=== PATIENT | female | born 1980 | race Caucasian/White ===

== ENCOUNTER 2018-11-10 13:45 | Outpatient (CLI) | payer MEDICAID ==
[~2018-11-10] VITALS: Ht 160 cm; Wt 71.9 kg
[2018-11-10 14:37] VITALS: BP 97/65; PULSE 99; RESP 18; Ht 160 cm; Wt 71.9 kg
--- NOTE | 2018-11-10 18:05 | PN ---
Triage Information Date/Time 11/10/1809/25/1755 Reason for visit: questionable EDC postdate? Weeks of Gestation 37w3 d by jun u/s /Para Diabetes: none Hypertention: none Objective Vital Signs Date Temp Pulse Resp B/P (MAP) Pulse Ox O2 O2 Flow FiO2 Time Delivery Rate 11/10/18 98.0 99 18 97/65 (76) 14:37 Heart Rate: 140's Heart Rate Comments CAT I Contractions: None Results/Medications Imaging Results BPP 8/8 BEV 9.4 EFW 3285gm Disposition: Discharge Assessment/Plan A IUP 37w3d P discharge home with routine labor instructions RTH prSTACEY Underwood MD Nov 10, 2018 18:05
== END 2018-11-10 16:50 | disposition home or self-care (01) ==
LOC: OBT 13:45 → L-D 13:46 → OBT 16:50
PROVIDERS: ATTEND Obstetrics & Gynecology
DX: O47.1 False labor at or after 37 completed weeks of gestation (principal); Z3A.37 37 weeks gestation of pregnancy
CPT/HCPCS: 76815; 76818; Z7500; G0463

== ENCOUNTER 2018-11-29 07:30 | Inpatient (IN) | payer MEDICAID ==
[~2018-11-29] VITALS: Ht 154.9 cm; Wt 71.5 kg
[2018-11-29] MEDS ORDERED: PREN-93 PO (07:58)
[2018-11-29 07:59] VITALS: BP 106/73; PULSE 94
[2018-11-29] MEDS ORDERED: FOLI-49 PO (07:59)
[2018-11-29] MEDS ORDERED: FER325 PO (07:59)
[2018-11-29] MEDS ORDERED: CALC600T24 PO (07:59)
--- NOTE | 2018-11-29 08:40 | TRIAGE ---
OB Triage Datetime Report Generated by CPN: 11/29/2018 08:40 Datetime: 11/29/2018 08:02 Vaginal Exam Dilatation (cms): 1.5 Effacement (%): 70 Station: -2 Exam By: tapan Vaginal Bleeding: None Cervix, Consistency: Soft Cervix, Position: Midposition Datetime: 11/29/2018 07:53 Assessment Type: Triage Maternal Assessment Level of Consciousness: Keenly Alert, Responsive DTR's/Clonus: DTRs 2+; No Clonus Headache: Denies Blurred Vision: No Respiratory Effort: Unlabored; Regular Rhythm; Equal Expansion Breath Sounds, Left: Clear and Equal Breath Sounds, Right: Clear and Equal Nausea/Vomiting: Denies RUQ Epigastric Pain: Denies Lower Extremities Edema: None Degree: None Upper Extremities Edema: None Degree: None Facial Edema: None Fall Risk Assessment History of Falling: (0) No Secondary Diagnosis: (0) No Ambulatory Aid: (0) Bedrest/Nurse Assist IV Therapy: (0) No Gait: (0) Normal/Bedrest/Immobile Mental Status: (0) Oriented to Own Ability Fall Score: 0 Fall Risk Score Definition: No Risk: No action required Datetime: 11/29/2018 07:45 Time of Arrival: 11/29/2018 07:31 EGA: 40.2 Arrived By: Ambulatory Arrived From: Home Chief Complaint: pt. here C/O UC'S Movement: Present Contractions: Irregular Rupture of Membranes: Denies Vaginal Bleeding: None Vaginal Discharge: Denies Recent Sexual Intercouse: Denies Abdominal Trauma: Not Applicable Patient Complaints: Contractions; Cramping Time Provider Notified: 11/29/2018 08:34 Provider Notified: ESHAGHIAN Initial Plan: EFM/SVE Datetime: 11/29/2018 07:43 Labor Evaluation Monitor Mode: External Monitor Mode: External US Datetime: 11/10/2018 16:02 Pattern: Normal: <= 5 Contractions in 10 Minutes Resting Tone [place]: Relaxed Contraction Comments: no uc Heart Rate FHR Baseline Rate: 135 Monitor Mode: External US Variability: Moderate 6-25 bpm Accelerations: 15X15 Decelerations: None Category: Category I Comments: reactive nst Pain Assessment Pain Presence: None/Denies Pain Type: N/A Datetime: 11/10/2018 14:56 Pattern: Normal: <= 5 Contractions in 10 Minutes Resting Tone [place]: Relaxed Contraction Comments: no uc Heart Rate FHR Baseline Rate: 135 Variability: Moderate 6-25 bpm Accelerations: 15X15 Decelerations: None Category: Category I Pain Assessment Pain Presence: None/Denies Pain Type: N/A Datetime: 11/10/2018 14:41 Assessment Type: Triage Maternal Assessment Level of Consciousness: Keenly Alert, Responsive DTR's/Clonus: DTRs 2+; No Clonus Headache: Denies Blurred Vision: No Respiratory Effort: Unlabored; Regular Rhythm; Equal Expansion Breath Sounds, Left: Clear and Equal Breath Sounds, Right: Clear and Equal Nausea/Vomiting: Denies RUQ Epigastric Pain: Denies Lower Extremities Edema: None Degree: None Upper Extremities Edema: None Facial Edema: None Fall Risk Assessment History of Falling: (0) No Secondary Diagnosis: (0) No Ambulatory Aid: (0) Bedrest/Nurse Assist IV Therapy: (0) No Gait: (0) Normal/Bedrest/Immobile Mental Status: (0) Oriented to Own Ability Fall Score: 0 Fall Risk Score Definition: No Risk: No action required Datetime: 11/10/2018 14:40 Time of Arrival: 11/10/2018 13:50 EGA: 37.4 Arrived By: Ambulatory Arrived From: Home Chief Complaint: pt. to ob triage from md office for nst, bpp, efw for ? EDC Movement: Present Contractions: Denies/Absent Rupture of Membranes: Denies Vaginal Bleeding: None Vaginal Discharge: Denies Recent Sexual Intercouse: Denies Abdominal Trauma: Not Applicable Patient Complaints: None Time Provider Notified: 11/10/2018 15:49 Provider Notified: Initial Plan: NST, BPP, EFW
--- NOTE | 2018-11-29 08:57 | PREOPHP ---
DATE OF ADMISSION: 11/29/2018 HISTORY OF PRESENT ILLNESS: Ms. Barbie Stout is a 38-year-old 1, para 0, EDC 11/27/2018 i ntrauterine at 40 weeks and 2 days gestational age, presented to triage complaining of cont ractions since 1:30 this morning. She denies any vaginal bleeding or discharge. Her care t ook place with Dr. Kumar. PAST MEDICAL HISTORY: The patient is deaf. MEDICATIONS: vitamins and iron supplement. PAST SURGICAL HISTORY: None. OBSTETRIC HISTORY: Prima . GYNECOLOGIC HISTORY: Twelve, regular 3 to 4 days. Denies any sexually transmitted infections. Sexu ally active with 1 partner. SOCIAL HISTORY: Denies any smoking, drugs or alcohol. FAMILY HISTORY: None. REVIEW OF SYSTEMS: All within normal except history of present illness. PHYSICAL EXAMINATION: HEENT: Within normal. LUNGS: CTA bilateral. CARDIOVASCULAR: S1, S2, regular rhythm. ABDOMEN: Gravid, nontender. Negative CVA bilateral. EXTREMITIES: Negative edema. No calf tenderness. PELVIC: Vaginal exam 1 to 2, 70, -2. heart tracing category 1. Tocometer regular contraction s. ASSESSMENT: Intrauterine at term in labor. PLAN: Anticipate vaginal delivery. Consider Pitocin as needed. Dictated By: JOE DEE/GUY Conf#: [id number] DID#: [id number]
[2018-11-29] MEDS ORDERED: CARBOPROST 250 MCG INJ IM PRN (09:00)
[2018-11-29] MEDS ORDERED: IBUPROFEN 600 MG TAB PO PRN (09:00)
[2018-11-29] MEDS ORDERED: MISOPROSTOL 200 MCG TAB PR PRN (09:00)
[2018-11-29] MEDS ORDERED: METHYLERGONOVINE 0.2 MG INJ IM PRN (09:00)
[2018-11-29] MEDS ORDERED: LIDOCAINE 1% (MPF) 30 ML INJ INJ PRN (09:00)
[2018-11-29] MEDS ORDERED: OXYTOCIN 30 UNITS/LR 500 ML IV SCH ×3 (09:00→20:30)
[2018-11-29] MEDS ORDERED: BUTORPHANOL 2 MG INJ IV PRN (09:00)
[2018-11-29] MEDS ORDERED: OXYTOCIN 30 UNITS/LR 500 ML IV PRN (09:00)
[2018-11-29 10:59] VITALS: Ht 154.9 cm; Wt 71.5 kg
[2018-11-29] MEDS: LACTATED RINGER'S 1,000 ML IV SCH ×2 (11:02→15:16)
[2018-11-29] MEDS ORDERED: MISOPROSTOL 50 MCG CAPSULE PO PRN (20:30)
[2018-11-30] MEDS: LACTATED RINGER'S 1,000 ML IV SCH ×4 (00:50→10:34)
--- NOTE | 2018-11-30 07:08 | PREAC ---
Date/Time of Note Date/Time of Note DATE: 11/30/18 TIME: 07:08 Anesthesia Eval and Record Evaluation Time Pre-Procedure Interview DATE: 11/30/18 TIME: 07:08 Age 38 Sex female NPO: 8 hrs Preoperative diagnosis Planned procedure labor epidural Past Medical History Past Medical History: Includes Neuro: Other (pt is deaf) Surgery & Anesthesia Issues No known issue Meds Anticoagulation: No Beta Fabian within 24 hr: No Reason Beta Fabian not given: Pt. not on B-Fabian Reported Medications Folic Acid* (Folic Acid*) 1 Mg Tablet, 1 MG PO DAILY, TAB 11/29/18 Calcium Carbonate* (Calcium Carbonate*) 600 MG Ca Tab, 600 MG PO DAILY, TAB 11/29/18 Ferrous Sulfate* (Ferrous Sulfate*) 325 Mg Tabec, MG PO DAILY, TAB 11/29/18 Vit No.124/Iron/FA ( Vitamin Tablet) 1 Each Tablet, 1 EACH PO DAILY, TAB 11/29/18 Current Medications Lactated Ringer's 1,000 ml @ 125 mls/hr Q8H IV Last administered on 11/30/18at 06:22; Admin Dose 125 MLS/HR; Start 11/29/18 at 08:35 Butorphanol Tartrate (Stadol) 2 mg Q2H PRN IV .PAIN SCALE 6-10 Last administered on 11/30/18at 00:50; Admin Dose 2 MG; Start 11/29/18 at 09:00 Lidocaine (Xylocaine 1% (Mpf)) 30 ml ONCE PRN INJ .EPISIOTOMY; Start 11/29/18 at 09:00 Oxytocin/Lactated Ringer's 500 ml @ 125 mls/hr POST IV ; Start 11/29/18 at 09:00 Ibuprofen (Motrin) 600 mg ONCE PRN PO .PAIN 1-5; Start 11/29/18 at 09:00 Oxytocin/Lactated Ringer's 500 ml @ 0 mls/hr ONCE PRN IV .VAGINAL BLEEDING; Start 11/29/18 at 09:00 Methylergonovine Maleate (Methergine) 0.2 mg ONCE PRN IM .VAGINAL BLEEDING; Start 11/29/18 at 09:00 Carboprost Tromethamine (Hemabate) 250 mcg ONCE PRN IM .VAGINAL BLEEDING; Start 11/29/18 at 09:00 Misoprostol (Cytotec) 1,000 mcg ONCE PRN MD .VAGINAL BLEEDING; Start 11/29/18 at 09:00 Misoprostol (Cytotec 50 Mcg Capsule) 50 mcg Q4 PRN PO INDUCTION Last administered on 11/29/18at 20:28; Admin Dose 50 MCG; Start 11/29/18 at 20:30 Oxytocin/Lactated Ringer's 500 ml @ 0 mls/hr FOR INDUCTION IV Last administered on 11/30/18at 03:40; Admin Dose 1 MLS/HR; Start 11/29/18 at 20:30 Meds reviewed: Yes Allergies Coded Allergies: No Known Allergy (Unverified , 11/10/18) Allergies Reviewed: Yes Labs/Studies Labs Reviewed: Reviewed by anesthesiologist Result Diagram: 11/29/18 1050 11/29/18 1050 Laboratory Tests 11/29/18 10:50 Blood Bank Test 11/29/18 10:50 Antibody Screen NEGATIVE Blood Type A POSITIVE Rh Immune Globulin Candidate NO test: Positive Pre-procedure Exam Last vitals Vital Signs Date Temp Pulse Resp B/P (MAP) Pulse Ox O2 O2 Flow FiO2 Time Delivery Rate 11/29/18 97.4 94 106/73 07:59 (84) Airway: Adequate mouth opening, Adequate thyromental dist Mallampati: Mallampati II Teeth: Normal Lung: Normal Heart: Normal ASA Physical Status ASA physical status: 2 Emergency: None Planned Anesthetic Neuraxial: Epidural Pre-operative Attestations Prior to commencing anesthesia and surgery, the patient was re-evaluated, there was verification of: *The patient's identity *The results of appropriate recent lab work and preoperative vital signs *The above evaluation not changing prior to induction *Anesthetic plan, risk benefits, alternative and complications discussed with patient/family; questions answered; patient/family understands, accepts and wishes to proceed. MARLI GAGE Nov 30, 2018 07:08
[2018-11-30] MEDS ORDERED: DIPHENHYDRAMINE 50 MG INJ IV PRN (07:30)
[2018-11-30] MEDS ORDERED: ONDANSETRON 4 MG INJ IV PRN ×2 (07:30→14:00)
[2018-11-30] MEDS ORDERED: NALOXONE (0.4 MG/ML) INJ IV PRN (07:30)
[2018-11-30] MEDS ORDERED: KETOROLAC 30 MG INJ IV PRN (07:30)
[2018-11-30] MEDS ORDERED: HYDROmorphONE 0.5 MG/0.5 ML SYG IV PRN ×2 (07:30)
[2018-11-30] MEDS ORDERED: FENTAnyl 2MCG/ML-ROPIV 0.2% 100 ML BAG EPI SCH (07:30)
--- NOTE | 2018-11-30 08:14 | PAC ---
Date/Time of Note Date/Time of Note DATE: 11/30/18 TIME: 08:14 Post-Anesthesia Notes Post-Anesthesia Note Last documented vital signs Vital Signs Date Temp Pulse Resp B/P (MAP) Pulse Ox O2 O2 Flow FiO2 Time Delivery Rate 11/29/18 97.4 94 106/73 07:59 (84) Activity: WNL Respiratory function: WNL Cardiovascular function: WNL Mental status: Baseline Pain reasonably controlled: Yes Hydration appropriate: Yes Nausea/Vomiting absent: Yes MARLI GAGE Nov 30, 2018 08:14
--- NOTE | 2018-11-30 08:15 | QN ---
Documentation Comment progress note in labor and delivery patient seen and evaluated recently recieved an epidural no complaints vs stable afebrile ab gravid, nt extremity no edema no calf tenderness ve 8/90/-2 srom fhr cat 1 toco regular a/ iup at term in labor, currently on Pitocin for augmentation p/ anticipate vaginal delivery JOE PARNELL MD Nov 30, 2018 08:15
[2018-11-30] MEDS ORDERED: MINERAL OIL LIGHT 10 ML VIAL TOP ONE (10:00)
[2018-11-30] MEDS ORDERED: OXYTOCIN 30 UNITS/LR 500 ML IV SCH (13:45)
--- NOTE | 2018-11-30 13:45 | LDN ---
Date/Time of Note Date/Time of Note DATE: 11/30/18 TIME: 13:44 Delivery Summary Weeks of Gestation 39 Placenta Delivered: Spontaneously Meconium: Light Episiotomy: No Laceration repair: 1st degree vaginal laceration repair with 2-0 chromic Anesthesia type: Epidural Estimated blood loss: 250 Sponge & Needle done & correct: Yes All needle counts correct: Yes Any foreign bodies felt in the: No Delivery Information Sex Infant Sex: female Apgars 1 Minute: 9 5 Minute: 9 Suctioning Nose & mouth suctioned at brian: No Delee suction performed: No Umbilical Cord Umbilical cord with: 3 Vessels Cord presentations: no nuchal cord Cord Blood was obtained: Yes JOE PARNELL MD Nov 30, 2018 13:45
[2018-11-30] MEDS ORDERED: MISOPROSTOL 200 MCG TAB PR PRN (14:00)
[2018-11-30] MEDS ORDERED: BENZOCAINE 20% 56 ML SPRAY TOP PRN (14:00)
[2018-11-30] MEDS ORDERED: ACETAMINOPHEN 325 MG TAB PO PRN (14:00)
[2018-11-30] MEDS ORDERED: OXYCODONE/ASPIRIN (4.88/325) TAB PO PRN ×2 (14:00)
[2018-11-30] MEDS ORDERED: NACL 0.9% 3 ML SYG IV SCH (14:00)
[2018-11-30] MEDS ORDERED: METHYLERGONOVINE 0.2 MG INJ IM PRN (14:00)
[2018-11-30] MEDS ORDERED: DIPHENHYDRAMINE 25 MG CAP PO PRN (14:00)
[2018-11-30] MEDS ORDERED: WITCH HAZEL/GLYCERIN PAD PR PRN (14:00)
[2018-11-30] MEDS ORDERED: OXYTOCIN 30 UNITS/LR 500 ML IV PRN (14:00)
[2018-11-30] MEDS ORDERED: CARBOPROST 250 MCG INJ IM PRN (14:00)
[2018-11-30 16:45] VITALS: BP 110/63; PULSE 85; RESP 16
[2018-11-30] MEDS: LANOLIN HPA 1 PKT TOP PRN (17:40)
[2018-11-30] MEDS: IBUPROFEN 600 MG TAB PO SCH (18:00)
[2018-11-30 20:15] VITALS: BP 111/63; PULSE 81; RESP 18
[2018-11-30] MEDS: SENNA/DOCUSATE NA (8.6MG/50MG) TAB PO SCH (21:43)
[2018-12-01] VITALS: BP 108/61; PULSE 83; RESP 17
[2018-12-01] MEDS: IBUPROFEN 600 MG TAB PO SCH ×4 (00:24→18:27)
[2018-12-01 04:00] VITALS: BP 101/61; PULSE 78; RESP 18
[2018-12-01 08:00] VITALS: BP 108/65; PULSE 83; RESP 18
[2018-12-01] MEDS: SENNA/DOCUSATE NA (8.6MG/50MG) TAB PO SCH ×2 (09:39→21:00)
[2018-12-01 12:00] VITALS: BP 102/65; PULSE 68; RESP 19
[2018-12-01 17:08] VITALS: BP 100/60; PULSE 85; RESP 18
[2018-12-01 20:30] VITALS: BP 113/61; PULSE 84; RESP 18
--- NOTE | 2018-12-01 21:12 | PD.PPDC ---
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 Condition [id number] Patient Condition: [id number] Good Diet [id number] Diet: Irres8h Resume Regular Diet Activity/Restrictions [id number] Activity: Jqhoe5d Normal Activity May Shower [id number] Restrictions: Ntrge8e No Exercising No Lifting No Driving No Sexual Activity Nothing in the Vagina No [place] No Tampons, douche Follow-up Follow-up with Physician: 3, Week/Weeks Return to clinic for Slvky2Nj APPROVER Instructions: Mkbwy1f Fever greater than 101 Chills Worsening abdominal pain Excessive Vaginal Bleeding More than 2 pads per hour Unable to tolerate diet Vocml2No OB Instructions: Dabve7x Breast Tenderness Depression Blurried Vision Headache Sacsn2Pb Surgical Instructions: Euvsb9e Incisional Drainage Incisional Redness JOE PARNELL MD Dec 01, 2018 21:12
--- NOTE | 2018-12-01 21:15 | DS ---
Date/Time of Note Date/Time of Note DATE: 12/01/18 TIME: 21:14 Obstetrical Discharge Record Final Diagnosis Final Diagnosis: Term delivered Vaginal Delivery Obstetrical Delivery: Spontaneous, Laceration, Repaired Condition on Discharge Physical Assessment Last Vitals: stable afebrile Voiding: Yes Bowel Movement: Yes Breast: Soft, non-tender, Filling Fundus: Firm Abdomen and Incision: soft nt Calf Tenderness: No Patient Condition: Fair JOE PARNELL MD Dec 01, 2018 21:15
[2018-12-02] MEDS: IBUPROFEN 600 MG TAB PO SCH ×3 (03:58→12:20)
[2018-12-02 04:30] VITALS: BP 114/76; PULSE 82; RESP 19
[2018-12-02 08:00] VITALS: BP 103/67; PULSE 80; RESP 19
[2018-12-02] MEDS: SENNA/DOCUSATE NA (8.6MG/50MG) TAB PO SCH (08:56)
[2018-12-02 15:30] VITALS: BP 101/60; PULSE 86; RESP 18
[2018-12-02] MEDS: LANOLIN HPA 1 PKT TOP PRN (16:00)
--- NOTE | 2018-12-03 19:36 | DELSUM ---
Delivery Summary A-C Datetime Report Generated by CPN: 12/03/2018 19:35 DELIVERY PERSONNEL Operations Associate: Duvo, Giovanna MATERNAL INFORMATION Delivery Anesthesia: Epidural Medications in Delivery: PITOCIN 30 UNITS Delivery QBL (ml): 256 Placenta Cultured: Yes Maternal Complications: Other Other Maternal Complications: PT IS HEARING IMPAIRED. LABOR SUMMARY EDC: 11/27/2018 00:00 No. Babies in Womb: 1 Attempted: No Labor Anesthesia: Epidural LABOR INFORMATION Reason for Induction: Not Applicable Onset of Labor: 11/30/2018 03:37 Complete Dilatation: 11/30/2018 12:30 Cervical Ripening Agents: Cytotec @ Oxytocin: Induction Group B Beta Strep: Negative Antibiotics # of Doses: 0 Steroids Given: None Reason Steroids Not Administered: Not Applicable MEMBRANES Membranes Rupture Method: Artificial Rupture of Membranes: 11/30/2018 07:02 Length of Rupture (hr): 6.38 Amniotic Fluid Color: Light Meconium Amniotic Fluid Amount: Small Amniotic Fluid Odor: None STAGES OF LABOR Stage 1 hr: 8 Stage 1 min: 53 Stage 2 hr: 0 Stage 2 min: 55 Stage 3 hr: 0 Stage 3 min: 3 Total Time in Labor hr: 9 Total Time in Labor min: 51 VAGINAL DELIVERY Episiotomy: None Laceration Extension: First Degree Laceration Type: Vaginal Laceration Repair: Yes Initial Vag Sponge Count: 10 Final Vag Sponge Count: 10 Initial Vag Sharps Count: 1 Final Vag Sharps Count: 3 Sponge Count Correct: Yes; Vaginal Sweep Performed Sharps Count Correct: Yes BABY A INFORMATION Infant Delivery Date/Time: 11/30/2018 13:25 Method of Delivery: Vaginal Born in Route : No : N/A Forceps: N/A Vacuum Extraction: N/A Shoulder Dystocia : No SHOULDER DYSTOCIA BABY A Infant Delivery Date/Time: 11/30/2018 13:25 PRESENTATION/POSITION BABY A Presentation: Cephalic Cephalic Presentation: Vertex Vertex Position: Left Occipital Anterior Breech Presentation: N/A PLACENTA INFORMATION BABY A Placenta Delivery Time : 11/30/2018 13:28 Placenta Method of Delivery: Spontaneous Placenta Status: Delivered SCORES BABY A Heart Rate 1 min: >100 bpm Resp Effort 1 min: Good Cry Reflex Irritability 1 min: Cough/Sneeze/Pulls Away Muscle Tone 1 min: Active Motion Color 1 min: Body [place], Extremit Blue Resuscitation Effort 1 min: Tactile Stimulation SCORE 1 MIN: 9 Heart Rate 5 min: >100 bpm Resp Effort 5 min: Good Cry Reflex Irritability 5 min: Cough/Sneeze/Pulls Away Muscle Tone 5 min: Active Motion Color 5 min: Body [place], Extremit Blue Resuscitation Effort 5 min: Tactile Stimulation SCORE 5 MIN: 9 INFANT INFORMATION BABY A Gestational Age at Delivery: 40.3 Gestational Status: Full Term- 39- 40.6 Weeks Outcome : Liveborn, with signs of life Condition : Stable Sex: Female IDENTIFICATION/MEDS BABY A ID Band Number: [id number] ID Band Location: Right Leg; Left Arm Sensor Applied: Yes Sensor Number: [id number] Sensor Location : Cord Clamp Vitamin K Given : Not Given Erythromycin Given: Not Given WEIGHT/LENGTH BABY A Infant Birthweight (gm): 3025 Weight (lb): 6 Weight (oz): 11 Length (in): 19.00 Infant Length (cm): 48.26 CORD INFORMATION BABY A No. Cord Vessels: 3 Nuchal Cord : N/A Cord Blood Taken: Yes Suction: Mouth; Nose ASSESSMENT BABY A Complications: Meconium; None Physical Findings at Delivery: Caput Succedaneum; Molding of the Head; Within Normal Limits Infant Respirations: Appears Normal Buyers' Agent/ALS Called : Yes Care By: Amish KEVIN Transferred To: Remains with Mother
== END 2018-12-02 18:18 | disposition home or self-care (01) | DRG 807 ==
LOC: OBT 07:30 → L-D 07:43 → OBT 09:41 → L-D 09:44 → PP1 11-30 17:24
PROVIDERS: ADMIT Obstetrics & Gynecology; ATTEND Obstetrics & Gynecology
PROC: 10E0XZZ Delivery of Products of Conception, External Approach (ICD-10-PCS; principal; 2018-11-30)
PROC: 0HQ9XZZ Repair Perineum Skin, External Approach (ICD-10-PCS; 2018-11-30)
DX: O70.0 First degree perineal laceration during delivery (principal); Z37.0 Single live birth; Z3A.40 40 weeks gestation of pregnancy
CPT/HCPCS: 62322; 76815; 80053; 80076; 85025; 85048; 85610; 85730; 86592; 86850; 86900; 86901; 99464; G0463; J0595; J2590; J3010; J7120